=== PATIENT | male | born 1955 | race Caucasian/White ===

== ENCOUNTER 2019-02-26 16:16 | Outpatient (CLI) | payer OTHER | END 2019-02-26 16:17 | disposition critical access hospital (66) | LOC: EMS 16:16 | PROVIDERS: ATTEND Surgery | DX: T63.421A Toxic effect of venom of ants, accidental (unintentional), initial encounter (principal); R55 Syncope and collapse; R60.0 Localized edema; L50.9 Urticaria, unspecified | CPT/HCPCS: A0425; A0427 ==

== ENCOUNTER 2019-02-26 16:46 | Emergency (ER) | payer OTHER ==
[2019-02-26] MEDS ORDERED: SODIUM CHLORIDE 0.9% 1,000 ML IV ONE (16:59)
--- NOTE | 2019-02-26 17:39 | ED Physician Documentation ---
History of Present Illness - Stated complaint Stated Complaint: BEE STING - Chief complaint Chief Complaint: Allergic Rx - History obtained from History obtained from: Patient, Family (spouse), EMS - History of Present Illness Timing: How many hours ago (1.5) - Treatment prior to arrival Treatment prior to arrival: zyrtec 20 mg po. - Additonal information Additional information: The patient is a 63-year-old male who arrives via ambulance complaining of dyspnea and facial swelling after yellowjacket stung him about 1/2 hours prior to arrival. He took Zyrtec 20 mg orally shortly after the sting, and his symptoms have significantly improved. Medics found him with slight facial swelling and a blood pressure of 100/40, but with clear breath sounds on auscultation. The patient denies history of similar symptoms in the past. Review of Systems Constitutional: denies: Fever Nose: denies: Congestion Throat: reports: Sore throat Cardiac: denies: Chest pain / pressure Respiratory: reports: Dyspnea (resolved). denies: Cough GI: denies: Abdominal Pain, Nausea, Vomiting : denies: Dysuria Skin: reports: Bite / sting (right shoulder). denies: Rash Musculoskeletal: reports: Joint swelling (Right shoulder posteriorly.) Neurologic: denies: Focal weakness, Numbness, Headache PD PAST MEDICAL HISTORY - Past Medical History Cardiovascular: Hypertension Respiratory: None Neuro: None Endocrine/Autoimmune: None GI: None : None HEENT: None Psych: None Musculoskeletal: None Derm: Rosacea - Past Surgical History Past Surgical History: No - Present Medications Home Medications: Ambulatory Orders Medication Instructions Recorded Confirmed EPINEPHrine [Epinephrine] 0.3 mg IJ ONCE PRN #1 auto.injct 02/26/19 Lisinopril 20 mg PO DAILY 02/26/19 02/26/19 - Allergies Allergies/Adverse Reactions: Allergies Allergy/AdvReac Type Severity Reaction Status Date / Time No Known Drug Allergies Allergy Verified 02/26/19 17:27 - Social History Does the pt smoke?: No Smoking Status: Never smoker Does the pt drink ETOH?: Yes ETOH Use: Wine, Beer, Liquor Does the pt have substance abuse?: No - Immunizations Immunizations are current?: Yes - POLST Patient has POLST: No PD ED PE NORMAL - Vitals Vital signs reviewed: Yes (normal) - General General: Alert and oriented X 3, Well developed/nourished - HEENT HEENT: Atraumatic, Pharynx benign, Other (No appreciable facial swelling.) - Neck Neck: Supple, no meningeal sign, No adenopathy, No JVD - Cardiac Cardiac: RRR - Respiratory Respiratory: No respiratory distress, Clear bilaterally - Abdomen Abdomen: Soft, Non tender - Back Back: No CVA TTP - Derm Derm: No rash - Extremities Extremities: Other (Swelling right shoulder posteriorly at latissimus region, with a sting/bite site noted.) - Neuro Neuro: Alert and oriented X 3, No motor deficit, Normal speech Results - Vitals Vitals: Vital Signs - 24 hr 02/26/19 02/26/19 02/26/19 16:50 17:10 17:30 Temperature 36.1 C L Heart Rate 65 67 63 Respiratory 18 16 16 Rate Blood Pressure 133/88 H 116/81 H 127/77 O2 Saturation 96 97 02/26/19 18:00 Temperature 36.8 C Heart Rate 62 Respiratory 16 Rate Blood Pressure 127/81 H O2 Saturation 97 Oxygen O2 Source Room air PD MEDICAL DECISION MAKING - ED course Complexity details: re-evaluated patient, considered differential, d/w patient, d/w family ED course: The patient's presentation is most consistent with a reaction to hymenoptera sting/bite. It sounds as if he had a generalized allergic reaction, with dyspnea and facial swelling. His symptoms resolved after administration of oral Zyrtec prior to arrival. At the time of his presentation to the emergency department he exhibits localized reaction, without evidence of anaphylaxis. Treatment in the emergency department included administration of normal saline IV, and observation. His symptoms remained localized in nature, and no further treatment was clinically indicated. He is being discharged with prescription for EpiPen. I discussed with him and his potentially worrisome signs or symptoms that should prompt reevaluation in the emergency department. Departure - Departure Disposition: 01 Home, Self Care Clinical Impression: Bee sting reaction Qualifiers: Encounter type: initial encounter Injury intent: accidental or unintentional Qualified Code(s): T63.441A - Toxic effect of venom of bees, accidental (unintentional), initial encounter Condition: Stable Instructions: ED Bite Sting Insect Gen Allergic React Prescriptions: EPINEPHrine [Epinephrine] 0.3 mg IJ ONCE PRN #1 auto.injct PRN Reason: Anaphylaxis Comments: Apply ice pack to the bite/sting site intermittently for the next 2 days. You can use Benadryl or Zyrtec as needed for itching. You can use Tylenol or ibuprofen if needed for discomfort. Return to the emergency department if you develop recurrent shortness of breath or difficulty swallowing, or otherwise worsening symptoms. Discharge Date/Time: 02/26/19 18:05
[2019-02-26 18:13] VITALS: BP 127/81
== END 2019-02-26 18:05 | disposition home or self-care (01) ==
LOC: EDUNIT# → ED 16:46
DX: T63.461A Toxic effect of venom of wasps, accidental (unintentional), initial encounter (principal); X58.XXXA Exposure to other specified factors, initial encounter; I10 Essential (primary) hypertension
CPT/HCPCS: 96360; 99283